=== PATIENT | male | born 1965 | race Caucasian/White ===

== ENCOUNTER 2022-05-04 00:30 | Day surgery (SDC) | payer OTHER, SELFPAY ==
[2022-04-27 14:56] VITALS: BMI 28.8
[2022-05-04 10:32] VITALS: BP 142/89; PULSE 74; RESP 18; TEMP 36.6; O2SAT 99; BMI 42.5
[2022-05-04] MEDS: LACTATED RINGERS 1,000 ML 150 ML IV CONT (10:43)
--- NOTE | 2022-05-04 10:43 | PM.HPGS ---
History of Present Illness History of Present Illness Consent: Risks, benefits, and alternatives have been discussed and questions answered. Patient agrees to proceed with procedure. Chief complaint: GERD, diarrhea Narrative: Hank Moses is a 56 year old male who is here for c/o of upper abdominal pain beginning a few weeks ago with associated loose stools and bloating/gas. Abdominal pain is constant in nature and radiates across upper abdomen. He can not identify and triggering or relieving factors. He denies any improvement with Aleve that he took for 1-2 weeks. He denies any nausea or vomiting. No change in appetite. No dysphagia or odynophagia. States appr 2 days after abdominal pain that he develop soft stools with intermittent urgency, but no diarrhea. Reports 2-4 BM daily (baseline of 1-2 BMs normal). He denies any night time awakening, no new meds, no recent travel. C-diff negative. He denies any constipation. Reports hx of GERD that he treats with omeprazole 40 mg BID and Pepcid 20 mg BID for several years now which controls his symptoms Review of Systems Review of Systems: All systems reviewed & are unremarkable except as noted in HPI and below PMFSH Past Medical History Medical History Bloating Surgical History Surgical History History of cholecystectomy Family History Family History Mother Heart disease Social History Social History Smoking packs per day: 2 Smoking cigarettes per day: 40.0 Years smoked: 30 Smoking pack-years: 60.00 Smoking status: Former smoker Tobacco type: cigarettes Second hand tobacco smoke exposure: No Alcohol intake: former Substance use: never Substance use type: does not use Living arrangements: with family Gender identity (if verbalized by the patient): Male Spiritual care concerns: No Meds Home Medications and Allergies Home Medications Medication Instructions Recorded Confirmed Type allopurinol 100 mg tablet 100 mg PO DAILY 04/17/22 04/27/22 History amlodipine 10 mg tablet 10 mg PO DAILY 04/17/22 04/27/22 History aspirin 81 mg tablet,delayed 81 mg PO DAILY 04/17/22 04/27/22 History release (Adult Aspirin Regimen) atorvastatin 40 mg tablet 40 mg PO DAILY 04/17/22 04/27/22 History azelastine 137 mcg (0.1 %) nasal 137 mcg intranasal BID 04/17/22 04/27/22 History spray aerosol cholestyramine (with sugar) 4 gram 4 g PO DAILY #378 grams 04/17/22 04/27/22 Rx oral powder clobetasol 0.05 % topical ointment 1 applic topical DAILY 04/17/22 04/27/22 History clopidogrel 75 mg tablet 75 mg PO DAILY 04/17/22 04/27/22 History colchicine 0.6 mg capsule 0.6 mg PO DAILY 04/17/22 05/04/22 History (Mitigare) colchicine 0.6 mg tablet (Colcrys) 0.3 mg PO DAILY 04/17/22 05/04/22 History diclofenac sodium 75 mg 75 mg PO BID 04/17/22 04/27/22 History tablet,delayed release famotidine 20 mg tablet 20 mg PO BID 04/17/22 04/27/22 History fluticasone propionate 50 1 spray intranasal DAILY 04/17/22 04/27/22 History mcg/actuation nasal spray,suspension ketorolac 10 mg tablet 10 mg PO Q6H PRN Pain 04/17/22 04/27/22 History metformin 1,000 mg tablet 1,000 mg PO BIDWMEAL 04/17/22 04/27/22 History methylprednisolone 4 mg tablet 4 mg PO DAILY 04/17/22 05/04/22 History (Medrol) metoprolol succinate 50 mg 50 mg PO DAILY 04/17/22 04/27/22 History tablet,extended release 24 hr montelukast 10 mg tablet 10 mg PO DAILY 04/17/22 04/27/22 History omeprazole 40 mg capsule,delayed 40 mg PO BID 04/17/22 04/27/22 History release Allergies Allergy/AdvReac Type Severity Reaction Status Date / Time benzethonium chloride Allergy Mild Unknown Verified 05/04/22 10:30 [From Lanacane Bacova] benzocaine Allergy Mild Unknown Verified 05/04/22 10
[2022-05-04 10:49] LABS: Glucose Point of Care 125 mg/dl (65-105)
--- NOTE | 2022-05-04 11:10 | WPDANESEPPF ---
Anes - Initial Pre Proc Eval Procedure: Operation Date: 05/04/22 11:15 Proposed Procedures p Esophagogastroduodenoscopy & Colonoscopy - Prieto Solomon MD Date/Time: 05/04/22 11:10 Surgeon: Prieto Solomon MD Pre Op Diagnosis: GERD, diarrhea Patient Data Age: 56 Gender: M Height: 1.73 m Weight: 127.1 kg Last Vital Signs Temp 97.9 F 05/04/22 10:32 Pulse 74 05/04/22 10:32 Resp 18 05/04/22 10:32 BP 142/89 H 05/04/22 10:32 Pulse Ox 99 05/04/22 10:32 O2 Del Method Room Air 05/04/22 10:32 Allergies Allergy/AdvReac Type Severity Reaction Status Date / Time benzethonium chloride Allergy Mild Unknown Verified 05/04/22 10:30 [From Lanacane [place]berry] benzocaine Allergy Mild Unknown Verified 05/04/22 10:30 [From Lanacane [place]] lidocaine Allergy Mild Unknown Verified 05/04/22 10:30 lisinopril Allergy Mild Itching Verified 05/04/22 10:30 Home Medications Medication Instructions Recorded Confirmed Type allopurinol 100 mg tablet 100 mg PO DAILY 04/17/22 04/27/22 History amlodipine 10 mg tablet 10 mg PO DAILY 04/17/22 04/27/22 History aspirin 81 mg tablet,delayed 81 mg PO DAILY 04/17/22 04/27/22 History release (Adult Aspirin Regimen) atorvastatin 40 mg tablet 40 mg PO DAILY 04/17/22 04/27/22 History azelastine 137 mcg (0.1 %) nasal 137 mcg intranasal BID 04/17/22 04/27/22 History spray aerosol cholestyramine (with sugar) 4 gram 4 g PO DAILY #378 grams 04/17/22 04/27/22 Rx oral powder clobetasol 0.05 % topical ointment 1 applic topical DAILY 04/17/22 04/27/22 History clopidogrel 75 mg tablet 75 mg PO DAILY 04/17/22 04/27/22 History colchicine 0.6 mg capsule 0.6 mg PO DAILY 04/17/22 05/04/22 History (Mitigare) colchicine 0.6 mg tablet (Colcrys) 0.3 mg PO DAILY 04/17/22 05/04/22 History diclofenac sodium 75 mg 75 mg PO BID 04/17/22 04/27/22 History tablet,delayed release famotidine 20 mg tablet 20 mg PO BID 04/17/22 04/27/22 History fluticasone propionate 50 1 spray intranasal DAILY 04/17/22 04/27/22 History mcg/actuation nasal spray,suspension ketorolac 10 mg tablet 10 mg PO Q6H PRN Pain 04/17/22 04/27/22 History metformin 1,000 mg tablet 1,000 mg PO BIDWMEAL 04/17/22 04/27/22 History methylprednisolone 4 mg tablet 4 mg PO DAILY 04/17/22 05/04/22 History (Medrol) metoprolol succinate 50 mg 50 mg PO DAILY 04/17/22 04/27/22 History tablet,extended release 24 hr montelukast 10 mg tablet 10 mg PO DAILY 04/17/22 04/27/22 History omeprazole 40 mg capsule,delayed 40 mg PO BID 04/17/22 04/27/22 History release Laboratory Tests 05/04/22 10:46 POC Capillary Glucose 125 mg/dl H mg/dl (65-105) Patient hx anesthesia problems: none Family hx anesthesia problems: none Results Review: All pre-operative results and documents have been reviewed as part of the pre-operative evaluation. [facility] Past Medical History Medical History Bloating Surgical History Surgical History History of cholecystectomy Family History Family History Mother Heart disease Social History Social History Smoking packs per day: 2 Smoking cigarettes per day: 40.0 Years smoked: 30 Smoking pack-years: 60.00 Smoking status: Former smoker Tobacco type: cigarettes Second hand tobacco smoke exposure: No Alcohol intake: former Substance use: never Substance use type: does not use Living arrangements: with family Gender identity (if verbalized by the patient): Male Spiritual care concerns: No Anes - Eval Final PreProcedure Day of Procedure 05/04/22 11:10 Patient weight: morbidly obese Heart: regular rate and rhythm Lungs: clear to auscultation Airway: Mallampati scale class II Neurological: alert and oriented Last oral in
--- NOTE | 2022-05-04 11:28 | SUR.OPER ---
EGD completed at 1123, colonoscopy started at 1128
[2022-05-04 11:41] VITALS: BP 107/71; PULSE 75; RESP 22; O2SAT 97
[2022-05-04 11:51] VITALS: BP 123/77; PULSE 67; RESP 18; O2SAT 97
[2022-05-04 12:01] VITALS: BP 117/76; PULSE 70; RESP 18; O2SAT 100
== END 2022-05-04 12:07 | disposition home or self-care (01) ==
PROVIDERS: PCP Internal Medicine; Visit Provider Internal Medicine Gastroenterology
PROC: 0DJ08ZZ Inspection of Upper Intestinal Tract, Via Natural or Artificial Opening Endoscopic (ICD-10-PCS; CPT 43235; principal; 2022-05-04 11:15)
DX: R19.4 Change in bowel habit (principal); K57.30 Diverticulosis of large intestine without perforation or abscess without bleeding; K21.00 Gastro-esophageal reflux disease with esophagitis, without bleeding; R19.7 Diarrhea, unspecified; Z79.82 Long term (current) use of aspirin; Z79.84 Long term (current) use of oral hypoglycemic drugs; R14.0 Abdominal distension (gaseous); Z90.49 Acquired absence of other specified parts of digestive tract; Z87.891 Personal history of nicotine dependence; E66.9 Obesity, unspecified; Z68.41 Body mass index [BMI] 40.0-44.9, adult
CPT/HCPCS: 45380; 43239; 82948; 87081; 88305; J2704; J7120

== ENCOUNTER 2022-06-14 08:25 | Outpatient (CLI) | payer OTHER, SELFPAY ==
--- NOTE | ~2022-06-14 | XR_ITS ---
EXAMINATION: XR small bowel follow through DATE: 06/14/2022 10:30 INDICATION: Unspecified abdominal pain. Diarrhea. TECHNIQUE: Oral contrast was administered, and a time course of radiographs of the abdomen was obtain ed. Fluoroscopy of the small bowel was performed. Fluoroscopy exposure time was 0.1 minutes. The tota l number of images was 17. COMPARISON: None. FINDINGS: There are no dilated loops of bowel. There is no abnormal mass or stricture. The terminal ileum is no rmal. Transit time from the stomach to proximal colon was approximately 1.5 hours. Surgical clips in the right upper quadrant are likely from cholecystectomy. IMPRESSION: 1. Normal small bowel series. Reviewed, dictated and finalized at location A.
== END 2022-06-14 08:26 | disposition home or self-care (01) ==
PROVIDERS: PCP Internal Medicine; Visit Provider Nurse Practitioner Family
DX: R10.9 Unspecified abdominal pain (principal)
CPT/HCPCS: 74250